=== PATIENT | male | born 1960 | race African-American/Black ===

== ENCOUNTER 2018-12-11 01:39 | Emergency (ER) | payer MEDICAID, OTHER ==
[~2018-12-11] VITALS: Ht 190.5 cm; Wt 95.3 kg
[~2018-12-11 01:39] MED LIST: ALBUTEROL SULF8.5 GM INH; AMBIEN10 M1 ORAL; AUGMENTIN 875-1 EAC1 ORAL; AZITHROMYCIN250 MG ORAL; BACITRACIN15 GM TOPIC; CELEXA20 MG PO; CLOTRIMAZOLE15 GM TOPIC; GABAPENTIN100 MG PO; HYDROCODON-ACE1 EA19 PO; IBUPROFEN600 MG ORAL; INVEGA6 MG PO; NKM; NORCO 5-325 TA1 EACH ORAL; VICODIN ES1 EA ORAL; [UNRECOGNIZED DRUG - CODE] PO; psych meds
[2018-12-11] MEDS ORDERED: Albuterol/Ipratropium 3ml neb HHN ONE (02:00)
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
[2018-12-11 02:05] VITALS: BP 155/88
--- NOTE | 2018-12-11 02:40 | NUR ---
ED Nurse Note: Pt here for med refill, seen by md and pt left yelling and shoting angrily because he can not get refill for narcotics, pt left with friend, nad noted.
[2018-12-11 02:52] VITALS: BP 155/88
== END 2018-12-11 02:53 | disposition home or self-care (01) ==
LOC: EMR 02:10
DX: R05 Cough (principal); G89.29 Other chronic pain; Z76.5 Malingerer [conscious simulation]; I10 Essential (primary) hypertension; E11.9 Type 2 diabetes mellitus without complications; Z86.19 Personal history of other infectious and parasitic diseases; G40.909 Epilepsy, unspecified, not intractable, without status epilepticus
CPT/HCPCS: 94640; 94664; 99284; J7620

== ENCOUNTER 2019-07-06 03:43 | Emergency (ER) | payer OTHER ==
[~2019-07-06] VITALS: Ht 190.5 cm; Wt 72.6 kg
[2019-07-06 04:50] VITALS: BP 144/81
[2019-07-06] MEDS ORDERED: ACETAMINOPHEN500 M3 ORAL (04:52)
[2019-07-06] MEDS ORDERED: ROBAXIN-500MG ORAL (04:53)
[2019-07-06] MEDS ORDERED: Acetaminophen 500mg (ES) tab ORAL ONE (05:00)
--- NOTE | 2019-07-06 07:01 | Emergency Room Report ---
History of Present Illness General Chief Complaint: Pain Present Illness HPI Patient is a 58-year-old male who presented after reportedly recently injuring his left eye. He states that he had been at a store when he accidentally struck the left side of his face on a sign. Denies loss of consciousness. He reports having slightly worsening headache over time. He reports having a chronic low back pain which had subsequently been exacerbated by this. He had been able to ambulate after the injury. Denies any vomiting. Patient states he is previously in pain management. He states he would like to avoid narcotics. Allergies: Coded Allergies: No Known Allergies (Unverified , 09/05/12) Patient History Past Surgical History: other - Back surgery Reviewed Nursing Documentation: PMH: Agreed; PSxH: Agreed Nursing Documentation-PMH Hx Hypertension: Yes Hx Diabetes: Yes Hx Gastrointestinal Problems: Yes - Hepatitis C Hx Seizures: Yes Review of Systems All Other Systems: negative except mentioned in HPI Physical Exam Vital Signs Date Time Temp Pulse Resp B/P (MAP) Pulse Ox O2 Delivery O2 Flow Rate FiO2 07/06/19 04:04 98.2 96 18 150/77 (101) 100 Room Air Sp02 EP Interpretation: reviewed, normal General Appearance: normal inspection, no apparent distress, alert, GCS 15 Head: atraumatic Eyes: bilateral eye other - Left eye without any evident bruising or swelling. 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 Differential diagnosis include was not limited to facial contusion, traumatic eye injury, malingering among others. Patient has a benign exam and does not appear to require laboratory testing at this time. CT imaging was ordered due to patient's worsening headache. Patient was pending testing when he eloped without notifying staff. He did not appear to be in any acute distress and did not have any evidence of external trauma or altered mental status at the time. EKG Diagnostic Results Rate: normal Rhythm: NSR ST Segments: no acute changes Last Vital Signs Date Time Temp Pulse Resp B/P (MAP) Pulse Ox O2 Delivery O2 Flow Rate FiO2 07/06/19 04:50 98.2 77 18 144/81 100 Room Air Status: improved Disposition: ELOPED Condition: Stable Scripts Methocarbamol* (ROBAXIN-500*) 500 Mg Tablet 500 MG ORAL TID PRN for For Pain, #15 TAB 0 Refills Prov: Patrick Tran MD 07/06/19 Acetaminophen* (ACETAMINOPHEN EXTRA STRENGTH*) 500 Mg Tablet 500 MG ORAL Q6H, #30 TAB Prov: Patrick Tran MD 07/06/19 Referrals: [facility],REFERRING (PCP) Patient Instructions: Facial or Scalp Contusion Additional Instructions: Follow up with your doctor. Return if worse. Patrcik Tran MD Jul 06, 2019 07:01
== END 2019-07-06 04:50 | disposition left against medical advice (07) ==
LOC: EMR 04:32
DX: S00.83XA Contusion of other part of head, initial encounter (principal); G89.29 Other chronic pain; W22.8XXA Striking against or struck by other objects, initial encounter; Y92.9 Unspecified place or not applicable; I10 Essential (primary) hypertension; E11.9 Type 2 diabetes mellitus without complications; Z86.19 Personal history of other infectious and parasitic diseases
CPT/HCPCS: 99282